=== PATIENT | male | born 1960 | race Caucasian/White ===

== ENCOUNTER 2019-05-25 09:39 | Inpatient (IN) | payer MEDICAID ==
[~2019-05-25] VITALS: Ht 172.7 cm; Wt 55.5 kg
--- NOTE | 2019-05-25 10:15 | NUR ---
PT C/O URINARY RETENTION. HE IS REQUESTING A CATH PLACEMENT SO HE CAN "JUST GO HOME" AT BEDSIDE, DID A U/S OF BLADDER, STATES THERE IS NOT MUCH URINE PRESENT.
[2019-05-25 10:43] LABS: ALBUMIN 3.9 g/dL (3.4-5.0); ANION GAP 9 mmol/L (5-15); CALCIUM 9.2 mg/dL (8.5-10.1); CHLORIDE 103 mmol/L (98-107)
[2019-05-25 10:47] LABS: ALANINE AMINOTRANSFERASE 35 U/L (12-78); ALKALINE PHOSPHATASE 77 U/L (45-117); BILIRUBIN,TOTAL 0.7 mg/dL (0.2-1.0); CREATININE 0.88 mg/dL (0.7-1.3); TOTAL PROTEIN 7.6 g/dL (6.4-8.2)
[2019-05-25 10:48] LABS: BASOPHILS # (AUTO) 0.02 x10^3/uL (0-0.1); BASOPHILS % (AUTO) 0 % (0-1); EOSINOPHILS % (AUTO) 0 % (1-7); LYMPHOCYTES # (AUTO) 1.55 x10^3/uL (1-3.4); LYMPHOCYTES % (AUTO) 17 % (22-44); MD NO; MEAN CORPUSCULAR HEMOGLOBIN 32.2 pg (27.5-34.5); MEAN CORPUSCULAR HGB CONC 33.5 g/dL (33.2-36.2); MEAN CORPUSCULAR VOLUME 96.3 fL (81-97); MEAN PLATELET VOLUME 7.5 fL (7.4-10.4); MONOCYTES # (AUTO) 0.44 x10^3/uL (0.2-0.8); MONOCYTES % (AUTO) 5 % (2-9); NEUTROPHILS % (AUTO) 78 % (42-75); PLATELET COUNT 407 x10^3/uL (130-400); RED CELL DISTRIBUTION WIDTH 14.9 % (9.4-14.8)
--- NOTE | 2019-05-25 11:15 | NUR ---
Patient is resting comfortably in bed. Vital Signs within normal limits.
--- NOTE | 2019-05-25 12:30 | NUR ---
FAMILY AT BEDSIDE. CATH HAS BEEN ATTEMPTED BY KARTHIKEYAN GOMEZ. UNABLE TO PRODUCE URINE. ZACH RED BLOOD CAME OUT OF URETHRA. POC IS TO RETRY WITH A DIFFERENT TYPE OF CATH.
[2019-05-25] MEDS ORDERED: PHENAZOPYRIDINE 200 MG TABLET PO ONE (13:00)
[2019-05-25] MEDS ORDERED: PHENAZOPYRIDINE 200 MG TABLET ONE (13:49)
[2019-05-25] MEDS ORDERED: LORazepam 2 MG/ML, 1ML ONE (13:49)
[2019-05-25] MEDS ORDERED: LORazepam 2 MG/ML, 1ML IVPush PRN (14:00)
[2019-05-25] MEDS ORDERED: THIAMINE 100MG TABLET PO ONE (14:00)
[2019-05-25 14:08] LABS: INTERNATIONAL NORMALIZED RATIO 0.95 (0.93-1.1)
--- NOTE | 2019-05-25 14:24 | NUR ---
COUDE CATH WAS INSERTED BUT IT IS CLOTTED. ORDERED BLADDER IRRIGATION. KARTHIKEYAN IS AT BEDSIDE BEGINNING THE INSERT AND IRRIGATION. VSS.
--- NOTE | 2019-05-25 14:33 | NUR ---
REPORT GIVEN TO NATHALIE
[2019-05-25 15:54] VITALS: BP 164/57
[2019-05-25] MEDS ORDERED: POLYETHYLENE GLYCOL 17 GM PACKET PO PRN (16:00)
[2019-05-25] MEDS ORDERED: ONDANSETRON 2MG/ML, 2ML IVPush PRN (16:00)
[2019-05-25] MEDS ORDERED: ONDANSETRON ODT 4 MG PO PRN (16:00)
[2019-05-25] MEDS ORDERED: LABETALOL 5MG/ML, 20ML IVPush PRN (16:00)
[2019-05-25] MEDS ORDERED: LORazepam 0.5MG TABLET PO PRN (16:30)
[2019-05-25] MEDS ORDERED: LORazepam 2 MG/ML, 1ML IV PRN ×5 (16:30)
[2019-05-25] MEDS ORDERED: LORazepam 1MG TABLET PO PRN ×2 (16:30)
[2019-05-25] MEDS ORDERED: POTASSIUM CHLORIDE 20 MEQ, MAGNESIUM SULFATE 1 GM, FOLIC ACID 1 MG, MVI ADULT 10 ML in ... IV SCH (16:30)
[2019-05-25 16:54] LABS: FREE T4 (FREE THYROXINE) 0.94 ng/dL (0.76-1.46); THYROID STIMULATING HORMONE 2.74 mIU/L (0.358-3.740)
[2019-05-25] MEDS: D5%-0.45% NACL 1,000 ML IV SCH (17:00)
[2019-05-25 17:26] LABS: HEMOGLOBIN A1C 5.4 % (4.2-6.3)
[2019-05-25 17:29] LABS: CHOL/HDL RATIO 2.7; LDL/HDL RATIO 1.5 (0.5-3.0)
[2019-05-25] MEDS: NICOTINE 21 MG/24 HR PATCH.TD24 TD SCH (19:56)
[2019-05-25 20:00] VITALS: BP 152/104
[2019-05-25 20:08] LABS: MICROSCOPIC INDICATED
[2019-05-25 20:40] LABS: CULTURE INDICATED? YES
[2019-05-26 01:22] VITALS: BP 113/75
[2019-05-26] MEDS: D5%-0.45% NACL 1,000 ML IV SCH (02:31)
[2019-05-26 05:13] LABS: BASOPHILS # (AUTO) 0.02 x10^3/uL (0-0.1); BASOPHILS % (AUTO) 0 % (0-1); EOSINOPHILS # (AUTO) 0.17 x10^3/uL (0-0.4); EOSINOPHILS % (AUTO) 2 % (1-7); LYMPHOCYTES # (AUTO) 1.75 x10^3/uL (1-3.4); LYMPHOCYTES % (AUTO) 19 % (22-44); MD NO; MEAN CORPUSCULAR HEMOGLOBIN 32.3 pg (27.5-34.5); MEAN CORPUSCULAR HGB CONC 33.3 g/dL (33.2-36.2); MEAN CORPUSCULAR VOLUME 96.9 fL (81-97); MEAN PLATELET VOLUME 7.9 fL (7.4-10.4); MONOCYTES # (AUTO) 0.81 x10^3/uL (0.2-0.8); MONOCYTES % (AUTO) 9 % (2-9); NEUTROPHILS % (AUTO) 70 % (42-75); PLATELET COUNT 323 x10^3/uL (130-400); RED BLOOD COUNT 4.58 x10^6/uL (4.38-5.82); RED CELL DISTRIBUTION WIDTH 14.6 % (9.4-14.8)
[2019-05-26 05:17] LABS: CALCIUM 8.5 mg/dL (8.5-10.1); CHLORIDE 105 mmol/L (98-107)
[2019-05-26 05:32] LABS: ALANINE AMINOTRANSFERASE 27 U/L (12-78); ALKALINE PHOSPHATASE 62 U/L (45-117); ANION GAP 5 mmol/L (5-15); BILIRUBIN,TOTAL 0.9 mg/dL (0.2-1.0); CREATININE 0.67 mg/dL (0.7-1.3); TOTAL PROTEIN 6.5 g/dL (6.4-8.2)
[2019-05-26] MEDS ORDERED: PANTOPRAZOLE 40 MG IV IVPush SCH (06:00)
[2019-05-26] MEDS ORDERED: SODIUM CHLORIDE 0.45% 1,000 ML IV SCH (06:30)
[2019-05-26] MEDS ORDERED: SODIUM CHLORIDE 0.9% 1,000 ML IV SCH (07:30)
[2019-05-26] MEDS ORDERED: HEPARIN 5,000 UNITS/ML, 1ML SQ SCH (07:30)
[2019-05-26 08:41] VITALS: BP 154/95
[2019-05-26] MEDS ORDERED: TAMSULOSIN 0.4 MG CAP.ER.24H PO SCH (09:00)
[2019-05-26] MEDS ORDERED: SENNA/DOCUSATE TABLET PO SCH (09:00)
[2019-05-26] MEDS ORDERED: BEER 12 OZ CAN PO SCH (09:00)
[2019-05-26] MEDS ORDERED: LACTOBACILLUS CHEW TABLET PO SCH (09:00)
[2019-05-26] MEDS: FINASTERIDE 5 MG TABLET PO SCH ×2 (09:15→09:29)
[2019-05-26] MEDS: NICOTINE 21 MG/24 HR PATCH.TD24 TD SCH (09:16)
[2019-05-26] MEDS ORDERED: NICO-487 TD (11:41)
[2019-05-26] MEDS ORDERED: FINA5TAB4 PO (11:41)
[2019-05-26] MEDS ORDERED: ACID1TAB7 PO (11:41)
[2019-05-26] MEDS ORDERED: Tamsulosin PO (11:41)
[2019-05-26 14:35] VITALS: BP 148/88
== END 2019-05-26 16:33 | disposition home or self-care (01) | DRG 696 ==
LOC: ED 10:22 → EDIP 13:37 → 4WST 15:16
PROVIDERS: ADMIT Internal Medicine; ATTEND Internal Medicine
PROC: 0T9B70Z Drainage of Bladder with Drainage Device, Via Natural or Artificial Opening (ICD-10-PCS; principal; 2019-05-25)
DX: R31.0 Gross hematuria (principal); F10.239 Alcohol dependence with withdrawal, unspecified; B18.2 Chronic viral hepatitis C; F12.90 Cannabis use, unspecified, uncomplicated; F17.200 Nicotine dependence, unspecified, uncomplicated; J44.9 Chronic obstructive pulmonary disease, unspecified; I10 Essential (primary) hypertension; H26.9 Unspecified cataract; N40.1 Benign prostatic hyperplasia with lower urinary tract symptoms; R33.8 Other retention of urine; Z88.6 Allergy status to analgesic agent; Z82.5 Family history of asthma and other chronic lower respiratory diseases
CPT/HCPCS: 36415; 99285; J7121; 76770; 80053; 80061; 81001; 82607; 83036; 83735; 84100; 84439; 84443; 85014; 85018; 85025; 85610; 85730; 87086; G0378; J3475; J3480; C9113; J7030